=== PATIENT | female | born 1975 | race Hispanic/Latino ===

== ENCOUNTER 2016-11-22 18:33 | Emergency (ER) | payer SELFPAY ==
[2016-11-22 18:41] VITALS: BP 126/80
--- NOTE | 2016-11-22 22:02 | XRay Report ---
FINAL REPORT EXAM: XR FOOT 3+V LT HISTORY: LEFT FOOT pain TECHNIQUE: 3 views of left foot. PRIORS: None. FINDINGS: Mild degenerative change in the midfoot. Mild plantar calcaneal spurring. No apparent fracture or dislocation. Soft tissues grossly unremarkable. IMPRESSION: 1. No acute osseous abnormality. 2. Degenerative changes.
--- NOTE | 2016-11-22 22:09 | Emergency Department Report ---
ED Lower Extremity HPI - General Chief Complaint: Extremity Injury, Lower Stated Complaint: LEFT FOOT PAIN Time Seen by Provider: 11/22/16 21:45 Source: patient Mode of arrival: Ambulatory Limitations: No Limitations - History of Present Illness Initial Comments: pt is a 40 y/o w/f hx of Asthma, GERD, and left foot fracture, 2 yrs ago who presents for left heel pain x 2 yrs acute exacerbation x 2 month symptoms include 4/10 aching to heel exacerbated by flexion and extension and prolonged standing. pt denies numbness tingling no weakness pt denies fall injury or trauma. MD Complaint: foot injury Onset/Timin -: year(s) Injury: Foot: Left (heel pain ) Type of Injury: other (fall with foot fracture 2 yrs ago ) Place: home Severity: moderate Severity scale (0 -10): 4 Improves With: rest, other (off loading ) Worsens With: weight bearing (prolonged walking and standing ), palpation Context: other (foot fracture 2 yrs ago plantar fascitis intermitent exacerbations since ) Associated Symptoms: ambulatory. denies: swelling, numbness, tingling - Related Data Previous Rx's Medication Instructions Recorded Last Taken Type Cyclobenzaprine [Flexeril] 10 mg PO TID PRN #30 tablet 11/22/16 Unknown Rx Naproxen [Naprosyn TAB] 500 mg PO BID PRN #30 tablet 11/22/16 Unknown Rx Allergies Allergy/AdvReac Type Severity Reaction Status Date / Time No Known Allergies Allergy Unverified 11/22/16 18:38 ED Review of Systems ROS: Stated complaint: LEFT FOOT PAIN Other details as noted in HPI Constitutional: denies: chills, fever Eyes: denies: eye pain, eye discharge, vision change ENT: denies: ear pain, throat pain Respiratory: denies: cough, shortness of breath, wheezing Cardiovascular: denies: chest pain, palpitations Endocrine: no symptoms reported Gastrointestinal: denies: abdominal pain, nausea, diarrhea Genitourinary: denies: urgency, dysuria, discharge Musculoskeletal: other (heel pain ) Skin: denies: rash, lesions Neurological: denies: headache, weakness, paresthesias Psychiatric: denies: anxiety, depression Hematological/Lymphatic: denies: easy bleeding, easy bruising ED Past Medical Hx - Past Medical History Hx GERD: Yes Hx Asthma: Yes - Surgical History Additional Surgical History: gastric bypass - Social History Smoking Status: Current Some Day Smoker Substance Use Type: None - Medications Home Medications: Home Medications Medication Instructions Recorded Confirmed Last Taken Type Cyclobenzaprine [Flexeril] 10 mg PO TID PRN #30 tablet 11/22/16 Unknown Rx Naproxen [Naprosyn TAB] 500 mg PO BID PRN #30 tablet 11/22/16 Unknown Rx ED Physical Exam - General Limitations: No Limitations General appearance: alert, in no apparent distress - Head Head exam: Present: atraumatic, normocephalic - Eye Eye exam: Present: normal appearance - ENT ENT exam: Present: mucous membranes moist - Neck Neck exam: Present: normal inspection - Respiratory Respiratory exam: Present: normal lung sounds bilaterally. Absent: respiratory distress - Cardiovascular Cardiovascular Exam: Present: regular rate, normal rhythm. Absent: systolic murmur, diastolic murmur, rubs, gallop - GI/Abdominal GI/Abdominal exam: Present: soft, normal bowel sounds - Rectal Rectal exam: Present: deferred - Extremities Exam Extremities exam: Present: normal inspection, full ROM, tenderness (left heel tenderness ), normal capillary refill. Absent: pedal edema, joint swelling, calf tenderness - Expanded Lower Extremity Exam Left Hip exam: Present: normal inspection, full ROM. Absent: tenderness Upper Leg exam: Present: normal inspection, full ROM. Absent: tenderness Knee exam: Present: normal inspection, full ROM. Absent: tenderness Lower Leg exam: Present: normal inspection, full ROM. Absent: tenderness Ankle exam: Present: normal inspection, full ROM. Absent: tenderness Foot/Toe exam: Present: normal inspection, full ROM, tenderness (heel and plant tendon tenderness ), calcaneal tenderness. Absent: swelling, abrasion, laceration, ecchymosis, deformity, crepidus, dislocation, erythema, amputation, puncture wound, foreign body, tenderness at base of 5th metatarsal, nail avulsion, subungual hematoma Neuro vascular tendon exam: Present: no vascular compromise. Absent: pulse deficit, abnormal cap refill, motor deficit, sensory deficit, tendon deficit, extremity cold to touch, pallor, abnormal 2-point discrimination, decreased fine /light touch, foot drop, peroneal nerve deficit, significant pain with passive ROM of distal joint Gait: Positive: observed and normal - Back Exam Back exam: Present: normal inspection, full ROM. Absent: tenderness, CVA tenderness (R), CVA tenderness (L), muscle spasm, paraspinal tenderness, vertebral tenderness, rash noted - Neurological Exam Neurological exam: Present: alert, oriented X3, CN II-XII intact, normal gait, reflexes normal - Psychiatric Psychiatric exam: Present: normal affect, normal mood - Skin Skin exam: Present: warm, dry, intact, normal color. Absent: rash ED Course Vital Signs 11/22/16 18:38 Temperature 97.9 F Pulse Rate 68 Respiratory 16 Rate Blood Pressure 126/80 O2 Sat by Pulse 97 Oximetry ED Lower Extremity MDM - Medical Decision Making pt is a 40 y/o w/f hx of Asthma, GERD, and left foot fracture, 2 yrs ago who presents for left heel pain x 2 yrs acute exacerbation x 2 month symptoms include 4/10 aching to heel exacerbated by flexion and extension and prolonged standing. pt denies numbness tingling no weakness pt denies fall injury or trauma. exam pt appears well nontoxic left foot exam: there is no deformity no ecchymosis no erythema no swelling heel and plant tendon tenderness , pt remains ambulatory without gait disturbance, plan: gonzalo wrap left foot, naproxen flexeril PRN pain and spasm foot exercises as directed, follow up with primary care as directe. Critical care attestation.: If time is entered above; I have spent that time in minutes in the direct care of this critically ill patient, excluding procedure time. ED Disposition Clinical Impression: Plantar fasciitis of left foot Disposition: DC-01 TO HOME OR SELFCARE Is pt being admited?: No Does the pt Need Aspirin: No Condition: Good Instructions: Plantar Fasciitis (ED) Prescriptions: Cyclobenzaprine [Flexeril] 10 mg PO TID PRN #30 tablet PRN Reason: Muscle Spasm Naproxen [Naprosyn TAB] 500 mg PO BID PRN #30 tablet PRN Reason: Pain Referrals: PRIMARY CARE, [Primary Care Provider] - 3-5 Days Forms: Work/School Release Form(ED) Time of Disposition: 22:21
== END 2016-11-22 22:10 | disposition home or self-care (01) ==
LOC: ED 18:33
DX: M72.2 Plantar fascial fibromatosis (principal); K21.9 Gastro-esophageal reflux disease without esophagitis; F17.200 Nicotine dependence, unspecified, uncomplicated; J45.909 Unspecified asthma, uncomplicated

== ENCOUNTER 2021-01-30 07:03 | Emergency (ER) | payer SELFPAY ==
[2021-01-30] MEDS ORDERED: ONDANSETRON 4 MG/2 ML INJ IV ONE (07:51)
[2021-01-30] MEDS ORDERED: SODIUM CHLORIDE 0.9% 1000 ML 1,000 ML IV ONE (07:51)
[2021-01-30] MEDS ORDERED: MORPHINE 4 MG/1 ML INJ IV ONE (07:51)
[2021-01-30] MEDS ORDERED: KETOROLAC 30 MG/1 ML INJ IV ONE (07:51)
--- NOTE | 2021-01-30 07:51 | Emergency Department Report ---
<BEATRIZ MERCEDES S - Last Filed: 01/30/21 11:19> ED Extremity Problem HPI - General Chief complaint: Extremity Injury, Upper Stated complaint: tattoo is infected Time Seen by Provider: 01/30/21 07:36 - Related Data Previous Rx's Medication Instructions Recorded Last Taken Type HYDROcodone/APAP 5-325 [[place] 1 each PO Q4HR PRN #12 tablet 01/30/21 Unknown Rx 5/325] Ibuprofen [Motrin] 600 mg PO Q8H PRN #30 tablet 01/30/21 Unknown Rx cephALEXin [Keflex] 500 mg PO Q6HR #40 capsule 01/30/21 Unknown Rx Allergies Allergy/AdvReac Type Severity Reaction Status Date / Time No Known Allergies Allergy Unverified 11/22/16 18:38 ED Past Medical Hx - Medications Home Medications: Home Medications Medication Instructions Recorded Confirmed Last Taken Type HYDROcodone/APAP 5-325 [[place] 1 each PO Q4HR PRN #12 tablet 01/30/21 Unknown Rx 5/325] Ibuprofen [Motrin] 600 mg PO Q8H PRN #30 tablet 01/30/21 Unknown Rx cephALEXin [Keflex] 500 mg PO Q6HR #40 capsule 01/30/21 Unknown Rx ED Medical Decision Making - Lab Data Result diagrams: 01/30/21 08:41 01/30/21 08:41 - Medical Decision Making I saw this patient in conjunction with EVE Degroot. The patient got a tattoo 4 days ago to the right volar forearm and since that time is having pain and swelling to the right hand and forearm with some pain shooting up into the upper arm and shoulder. On examination there is some nonpitting swelling of the right forearm and hand. She is neurovascular intact with +2/4 radial pulse and capillary refill less than 2 seconds. She has full range of motion of the right upper extremity. Labs have been unremarkable including no leukocytosis. She had a negative venous Doppler ultrasound of the right upper extremity to rule out DVT. Vital signs reassuring. She appears safe for discharge home. She will be placed on antibiotics and given pain control. ED Disposition Clinical Impression: Right forearm pain, Wound infection Disposition: HOME / SELF CARE / HOMELESS Condition: Stable Instructions: Wound Infection, [id number], Joint Pain Additional Instructions: Recommend keeping the arm elevated in the sling as often as possible to help with swelling. Take the Keflex as prescribed to help with any possible infection. Continue to keep the wound clean with soap and water and you can apply the bacitracin dressing after each cleaning. Follow-up closely with your PCP. Return to the ER if at any point you start to have worsening swelling, pain, spreading redness, fever or chills or any other worsening symptoms arm Prescriptions: cephALEXin [Keflex] 500 mg PO Q6HR #40 capsule Ibuprofen [Motrin] 600 mg PO Q8H PRN #30 tablet PRN Reason: Pain HYDROcodone/APAP 5-325 [[place] 5/325] 1 each PO Q4HR PRN #12 tablet PRN Reason: Pain Referrals: [facility] [Provider Group] - 3-5 Days <MORENA AGARWAL - Last Filed: 01/30/21 11:25> ED Extremity Problem HPI - General Source: patient Mode of arrival: Ambulatory Limitations: No Limitations - History of Present Illness Initial comments: 45-year-old female presents to the ER today with complaints of significant right upper extremity pain after getting a tattoo. Patient states that she got a new tattoo to the right forearm 3 days ago. Later on that night she felt like she had lost feeling in that arm, but with increasing pain to that forearm around the tattoo radiating up into her upper arm and into her hands and fingers. She states that she is having difficulty moving the right upper arm and feels like the right upper arm is weak because of the pain. She reports swelling to the right forearm hands and fingers, but no drainage from the tattoo or any significant redness. She denies any fever or chills. She reports nausea but no vomiting. She denies any headache, dizziness, vision changes, speech changes, chest pain, shortness of breath, neck pain, or any lower extremity symptoms. She states that she had been taking leftover Tylenol threes from a dental procedure at night to help with the pain. It caused her to fall asleep but when she woke up she still in pain. She states that the tattoo took about 2 hours and she states that her arm was not in one position for long period of time she kept on moving. MD Complaint: extremity pain, extremity swelling -: Gradual, days(s) (2) Severity scale (0 -10): 10 ED Review of Systems ROS: Stated complaint: tattoo is infected Other details as noted in HPI Comment: All other systems reviewed and negative Constitutional: denies: chills, fever Eyes: denies: eye pain, eye discharge, vision change ENT: denies: ear pain, throat pain Respiratory: denies: cough, shortness of breath, SOB with exertion, SOB at rest, wheezing Cardiovascular: denies: chest pain, palpitations, dyspnea on exertion, paroxysmal nocturnal dyspnea Gastrointestinal: denies: abdominal pain, nausea, diarrhea, constipation, hematemesis, melena, hematochezia Genitourinary: denies: urgency, dysuria, frequency, hematuria, discharge, abnormal menses, dyspareunia Musculoskeletal: joint swelling, arthralgia Skin: denies: rash, lesions Neurological: weakness (secondary to pain ), paresthesias. denies: headache, numbness, confusion, abnormal gait, vertigo Psychiatric: denies: anxiety, depression, auditory hallucinations, visual hallucinations, homicidal thoughts, suicidal thoughts Hematological/Lymphatic: denies: easy bleeding, easy bruising, swollen glands ED Past Medical Hx - Past Medical History Hx GERD: Yes Hx Asthma: Yes - Surgical History Additional Surgical History: gastric bypass - Social History Smoking Status: Current Some Day Smoker Substance Use Type: None ED Physical Exam - General Limitations: No Limitations General appearance: alert, in no apparent distress - Head Head exam: Present: atraumatic, normocephalic, normal inspection - Eye Eye exam: Present: normal appearance, PERRL, EOMI Pupils: Present: normal accommodation - ENT ENT exam: Present: normal exam, mucous membranes moist - Neck Neck exam: Present: normal inspection, full ROM - Respiratory Respiratory exam: Present: normal lung sounds bilaterally. Absent: respiratory distress, wheezes, rales, rhonchi - Cardiovascular Cardiovascular Exam: Present: regular rate, normal rhythm, normal heart sounds - GI/Abdominal GI/Abdominal exam: Present: soft. Absent: distended, tenderness, guarding, rebound - Expanded Upper Extremity Exam Right Shoulder Exam: Present: normal inspection, full ROM. Absent: tenderness, swelling, abrasion, laceration Upper Arm exam: Present: normal inspection, tenderness (mild soft tissue ttp diffusely ). Absent: swelling, abrasion, laceration, ecchymosis, deformity, crepidus, dislocation, erythema Elbow exam: Present: normal inspection, full ROM. Absent: tenderness Forearm Wrist exam: Present: tenderness (severe ttp mainly over tattoo located dorsal aspect of forearm ), swelling (Mild swelling noted to the forearm extending into the wrist and the hand and fingers), other (Mild erythema mainly around the borders of the tattoo but no streaking cellulitis. She does have some warmth over the tattoo when compared to left). Absent: full ROM (Range of motion decreased secondary to pain), abrasion, laceration, ecchymosis, deformity, crepidus, dislocation, erythema Hand Wrist exam: Present: full ROM, swelling (Mild). Absent: tenderness, abrasion, laceration, ecchymosis, deformity, crepidus, dislocation, erythema, amputation, nail avulsion, subungual hematoma Vascular: Present: normal capillary refill, radial pulse (Normal). Absent: vascular compromise - Neurological Exam Neurological exam: Present: alert, oriented X3, CN II-XII intact, normal gait - Psychiatric Psychiatric exam: Present: normal affect, normal mood - Skin Skin exam: Present: intact ED Course Vital Signs 01/30/21 01/30/21 07:06 09:58 Temperature 98.4 F 98.4 F Pulse Rate 99 H 88 Respiratory 20 16 Rate Blood Pressure 140/82 Blood Pressure 136/70 [Left] O2 Sat by Pulse 97 99 Oximetry ED Medical Decision Making - Lab Data Result diagrams: 01/30/21 08:41 01/30/21 08:41 - Radiology Data Radiology results: report reviewed Patient: MANISHA DUNCAN MR#: [id number] : 1975 Acct:[id number] Age/Sex: 45 / F ADM Date: 01/30/21 Loc: ED Attending Dr: Ordering Physician: MORENA AGARWAL Date of Service: 01/30/21 Procedure(s): VL venous duplex UE RT Accession Number(s): [id number] cc: MORENA AGARWAL DUPLEX DOPPLER UPPER EXTREMITY VENOUS, RIGHT INDICATION / CLINICAL INFORMATION: Right UE pain and swelling. TECHNIQUE: Duplex doppler imaging was performed through the veins of the right upper extremity using venous compression and other maneuvers. COMPARISON: None available. FINDINGS: RIGHT INTERNAL JUGULAR VEIN: Negative. RIGHT SUBCLAVIAN VEIN: Negative. RIGHT AXILLARY VEIN: Negative. RIGHT BRACHIAL VEIN: Negative. RIGHT FOREARM VEINS: Negative. RIGHT BASILIC VEIN (SUPERFICIAL): Negative. ADDITIONAL FINDINGS: None. IMPRESSION: 1. No sonographic evidence for DVT. Signer Name: Ravi Gould DO Signed: 01/30/2021 10:41 AM Workstation Name: [id number] [id number] Transcribed By: NS Dictated By: RAVI GOULD DO Electronically Authenticated By: RAVI GOULD DO Signed Date/Time: 01/30/21 1041 DD/ 1040 TD/TT: Critical care attestation.: If time is entered above; I have spent that time in minutes in the direct care of this critically ill patient, excluding procedure time. ED Disposition Is pt being admited?: No Does the pt Need Aspirin: No Time of Disposition: 11:17
[2021-01-30 08:54] LABS: Basophils % (Auto) 0.3 % (0.0-1.8); Eosinophils # (Auto) 0.1 K/mm3 (0.0-0.4); Eosinophils % (Auto) 1.3 % (0.0-4.3); Hemoglobin 12.6 gm/dl (10.1-14.3); Lymphocytes # (Auto) 1.4 K/mm3 (1.2-5.4); Lymphocytes % (Auto) 22.6 % (13.4-35.0); Mean Corpuscular HGB Conc 32 % (30-34); Mean Corpuscular Volume 88 fl (79-97); Monocytes # (Auto) 0.5 K/mm3 (0.0-0.8); Monocytes % (Auto) 7.5 % (0.0-7.3); Platelet Count 246 K/mm3 (140-440); Red Blood Count 4.45 M/mm3 (3.65-5.03); Red Cell Distribution Width 14.2 % (13.2-15.2)
[2021-01-30 09:17] LABS: Alanine Aminotransferase 14 units/L (7-56); Albumin 3.8 g/dL (3.9-5); Blood Urea Nitrogen 9 mg/dL (7-17); Calcium 8.6 mg/dL (8.4-10.2); Hemolysis Index 9
[2021-01-30 09:19] LABS: BUN/Creatinine Ratio 23
[2021-01-30 10:02] VITALS: BP 140/82
--- NOTE | 2021-01-30 10:45 | Vascular Lab Report ---
DUPLEX DOPPLER UPPER EXTREMITY VENOUS, RIGHT INDICATION / CLINICAL INFORMATION: Right UE pain and swelling. TECHNIQUE: Duplex doppler imaging was performed through the veins of the right upper extremity using venous compression and other maneuvers. COMPARISON: None available. FINDINGS: RIGHT INTERNAL JUGULAR VEIN: Negative. RIGHT SUBCLAVIAN VEIN: Negative. RIGHT AXILLARY VEIN: Negative. RIGHT BRACHIAL VEIN: Negative. RIGHT FOREARM VEINS: Negative. RIGHT BASILIC VEIN (SUPERFICIAL): Negative. ADDITIONAL FINDINGS: None. IMPRESSION: 1. No sonographic evidence for DVT. Signer Name: Ravi Razo DO Signed: 01/30/2021 10:41 AM Workstation Name: [id number]
== END 2021-01-30 11:47 | disposition home or self-care (01) ==
LOC: ED 07:03
DX: T81.49XA Infection following a procedure, other surgical site, initial encounter (principal); M79.631 Pain in right forearm; Y92.89 Other specified places as the place of occurrence of the external cause
CPT/HCPCS: 36415; 80053; 85025; 93971; 96361; 96374; 96375; 99284; J1885; J2270; J2405; J7030; Q0162

== ENCOUNTER 2021-09-23 21:26 | Emergency (ER) | payer SELFPAY ==
--- NOTE | 2021-09-23 22:16 | XRay Report ---
CHEST 2 VIEWS INDICATION / CLINICAL INFORMATION: Chest pain. COMPARISON: None available. FINDINGS: SUPPORT DEVICES: None. HEART / MEDIASTINUM: The heart size and pulmonary vasculature are normal. The aorta is normal in anita vivian. LUNGS / PLEURA: No significant pulmonary or pleural abnormality. No pneumothorax. ADDITIONAL FINDINGS: No significant additional findings. IMPRESSION: No acute findings. Signer Name: Ramon Huang MD Signed: 09/23/2021 10:12 PM Workstation Name: [id number]
[2021-09-23 22:49] LABS: Basophils % (Auto) 0.2 % (0.0-1.8); Eosinophils # (Auto) 0.1 K/mm3 (0.0-0.4); Eosinophils % (Auto) 1.2 % (0.0-4.3); Hematocrit 41.2 % (30.3-42.9); Hemoglobin 13.9 gm/dl (10.1-14.3); Lymphocytes # (Auto) 2.8 K/mm3 (1.2-5.4); Lymphocytes % (Auto) 32.3 % (13.4-35.0); Mean Corpuscular HGB Conc 34 % (30-34); Mean Corpuscular Volume 85 fl (79-97); Monocytes # (Auto) 0.6 K/mm3 (0.0-0.8); Platelet Count 279 K/mm3 (140-440); Red Blood Count 4.87 M/mm3 (3.65-5.03); Red Cell Distribution Width 14.6 % (13.2-15.2)
[2021-09-23 23:00] LABS: Alanine Aminotransferase 14 units/L (7-56); Albumin 4.3 g/dL (3.9-5); Blood Urea Nitrogen 13 mg/dL (7-17); Calcium 9.2 mg/dL (8.4-10.2); Hemolysis Index 10
[2021-09-23 23:09] LABS: BUN/Creatinine Ratio 19
[2021-09-24] MEDS ORDERED: ACETAMINOPHEN 325 MG TAB PO ONE (03:23)
[2021-09-24 09:27] VITALS: BP 151/90
--- NOTE | 2021-09-25 12:33 | Electrocardiograph Report ---
[facility] Test Date: 2021-09-23 Test Time: 21:52:05 Pat Name: MANISHA DUNCAN Department: Room: Gender: F Registered Nurse Renal: ZE : 1975 Requested By: ED DOC Order Number: [id number] Reading MD: Tabatha Rodriguez Measurements Intervals [place] Rate: 76 P: 26 [place]: 120 QRS: -23 QRSD: 81 T: 6 QT: 385 QTc: 434 Interpretive Statements Sinus rhythm No previous ECG available for comparison Electronically Signed On 09-25-2021 12:33:37 EDT by Tabatha Rodriguez
== END 2021-09-25 09:26 | disposition left against medical advice (07) ==
LOC: ED 21:26
DX: R07.9 Chest pain, unspecified (principal); Z53.21 Procedure and treatment not carried out due to patient leaving prior to being seen by health care provider
CPT/HCPCS: 36415; 71046; 80053; 84484; 85025; 93005